=== PATIENT | male | born 1970 | race Caucasian/White ===

== ENCOUNTER → 2017-02-19 | Emergency (ER) | payer OTHER ==
[2017-02-19 16:50] VITALS: BP 123/73; PULSE 76; TEMP 98; BMI 28.8
--- NOTE | 2017-02-19 16:58 | PDOC ---
Rapid Medical Evaluation Chief Complaint: Back Pain Time Seen by Provider: 02/19/17 16:50 Medical Evaluation: Allergies Allergy/AdvReac Type Severity Reaction Status Date / Time No Known Allergies Allergy Verified 02/19/17 16:42 Vital Signs Temp Pulse Resp BP Pulse Ox 98.0 F 76 18 123/73 100 02/19/17 16:42 02/19/17 16:42 02/19/17 16:42 02/19/17 16:42 02/19/17 16:42 02/19/17 16:53 Pt presents to the ED: left back pain after lifting a heavy item at work 3 days ago Pt on brief exam: reproducible pain to left thoracic lateral of MCL Pt ordered for : EKG Pt to proceed to the ED Discharge Disposition - Diagnosis Left-sided back pain - Referrals - Patient Instructions - Post Discharge Activity
--- NOTE | 2017-02-20 13:06 | EKG ---
Test Reason : Blood Pressure : / mmHG Vent. Rate : 069 BPM Atrial Rate : 069 BPM P-R Int : 138 ms QRS Dur : 108 ms QT Int : 372 ms P-R-T Axes : 038 074 049 degrees QTc Int : 398 ms NORMAL SINUS RHYTHM NORMAL ECG WHEN COMPARED WITH ECG OF 19-FEB-2016 19:25, NO SIGNIFICANT CHANGE WAS FOUND Confirmed by NILESH ESTRADA MD ([id number]) on 02/20/2017 1:05:40 PM Referred By: Confirmed By:NILESH ESTRADA MD
== END | disposition left against medical advice (07) ==
LOC: JER 16:39
DX: M54.6 Pain in thoracic spine (principal); X50.0XXA Overexertion from strenuous movement or load, initial encounter; Y93.89 Activity, other specified; Y92.89 Other specified places as the place of occurrence of the external cause; Y99.0 Civilian activity done for income or pay
CPT/HCPCS: 93005; 93010; 99281-25

== ENCOUNTER 2022-10-05 14:26 | Emergency (ER) | payer OTHER ==
[2022-10-05 14:44] VITALS: BP 133/70; PULSE 69; RESP 16; TEMP 98.3; BMI 27.9
[2022-10-05] MEDS ORDERED: DIPHTH,PERTUSS(ACELL),TET 0.5 ML DISP.SYRIN IM ONE ×2 (15:09→15:22)
== END 2022-10-05 16:27 | disposition home or self-care (01) ==
LOC: JERFT 14:26
PROC: 0HQFXZZ Repair Right Hand Skin, External Approach (ICD-10-PCS; principal; 2022-10-05)
PROC: 3E0234Z Introduction of Serum, Toxoid and Vaccine into Muscle, Percutaneous Approach (ICD-10-PCS; 2022-10-05)
DX: S61.210A Laceration without foreign body of right index finger without damage to nail, initial encounter (principal); W27.8XXA Contact with other nonpowered hand tool, initial encounter; Y99.0 Civilian activity done for income or pay
CPT/HCPCS: 12001-25; 73130-TC-RT-FY; 90471; 90715; 99283-25